=== PATIENT | female | born 1925 | race Caucasian/White ===

== ENCOUNTER 2016-05-24 03:16 | Inpatient (IN) | payer OTHER, BC ==
[~2016-05-24] VITALS: Ht 157.5 cm; Wt 67.9 kg
[~2016-05-24 03:16] MED LIST: ACETAMINOPHEN-1 EAC1 PO; AMITRIPTYLINE H10 MG PO; ASPIRIN EC325 MG PO; ASPIRIN81 M2 PO; BYSTOLIC5 MG PO; CARVEDILOL12.5 MG PO; CARVEDILOL3.125 MG PO; CITALOPRAM HBR10 MG PO; CLOPIDOGREL75 MG PO; CYANOCOBALAM1000 MCG PO; DIABETIC TUSSI118 ML PO; FAMOTIDINE20 MG PO; FERROUS SULFAT325 MG PO; HUMALOG100 UNIT/2 SC; HYDROCHLOROTHIA25 MG PO; IPRATR-ALBUTEROL3 ML IH; LASIX40 MG PO; LISINOPRIL2.5 MG PO; LIVALO2 MG PO; LO-DOSE ASPIRIN81 M1 PO; MUCINEX600 MG PO; NASACORT10.8 ML BOTH NARES; NITROGLYCERIN0.4 MG SL; NOVOLOG PE100 UNITS/ SC; TESSALON PERLE100 MG PO; TRADJENTA5 MG PO; TYLENOL EXTRA500 MG PO; TYLENOL REGULA325 MG PO; VOLTAREN 1% GE100 GM TP; WELCHOL3.75 GM PO; XARELTO15 MG PO; ZETIA10 MG PO
[2016-05-24 04:29] LABS: ADD MIUA? NO; BILIRUBIN NEGATIVE; BLOOD NEGATIVE; COLOR YELLOW ((YELLOW)); GLUCOSE (STRIP) NEGATIVE; KETONES NEGATIVE; LEUKOCYTES NEGATIVE; NITRITE NEGATIVE; PROTEIN (STRIP) NEGATIVE; SPECIFIC GRAVITY 1.011 (1.000-1.030); UCUL ADDED? NO; UROBILINOGEN 0.2 MG/DL (0.2-1.0)
[2016-05-24 04:40] LABS: HEMATOCRIT 32.5 % (36.0-46.0); MCH 30.9 PG (29.0-34.0); MCHC 32.6 G/DL (30.0-36.0); MCV 94.8 FL (83-99); PLATELET COUNT 222 K/uL (156-360); RBC DIS.WIDTH-CV 13.9 % (11.8-14.6); RBC DIS.WIDTH-SD 45.9 % (39-53); WHITE BLOOD COUNT 6.4 K/uL (4.1-10.2)
[2016-05-24 04:43] LABS: MEAN PLAT.VOLUME 9.6 uM^3 (9.5-12.4); RED BLOOD COUNT 3.43 M/uL (3.80-5.20)
[2016-05-24 05:01] LABS: TROP-I INTERPRETATION NEGATIVE; TROPONIN-I < 0.01 ng/mL (0.0-0.30)
[2016-05-24 05:07] LABS: CHLORIDE 115 mEq/L (99-109); POTASSIUM 5.4 mEq/L (3.7-5.4); SODIUM 137 mEq/L (136-147)
[2016-05-24 05:09] LABS: GLUCOSE 113 mg/dL (70-99)
[2016-05-24 05:11] LABS: ANION GAP 9 MEQ/L (2-14); TOTAL BILIRUBIN 0.3 mg/dL (0.0-1.0)
[2016-05-24 05:13] LABS: ALKALINE PHOSPHATASE 133 IU/L (3-129); GFR ESTIMATE (CALCULATED) 30 mL/min/
[2016-05-24 05:14] LABS: UREA NITROGEN (BUN) 41 mg/dL (9-23)
[2016-05-24 05:16] LABS: LIPASE 125 U/L (1.0-51.0)
[2016-05-24 05:17] LABS: CREATINE KINASE 30 IU/L (1-294)
[2016-05-24 07:44] VITALS: BP 178/78
[2016-05-24 15:52] VITALS: BP 169/76
[2016-05-24 21:30] VITALS: BP 156/70
[2016-05-25] VITALS: BP 147/77
[2016-05-25 05:19] VITALS: BP 130/60
[2016-05-25 08:01] LABS: INTERNAL CONTROL VALID? YES
[2016-05-25 08:47] VITALS: BP 184/79
[2016-05-25] MEDS ORDERED: POTASSIUM CHLO20 ME2 PO (09:10)
[2016-05-25] MEDS ORDERED: REMERON15 M2 PO (09:12)
[2016-05-25] MEDS ORDERED: NOVOLOG PE100 UNITS/ SC (09:15)
[2016-05-25] MEDS ORDERED: LASIX20 MG PO (09:17)
[2016-05-25] MEDS ORDERED: TUSSIN100 MG/5 M PO (09:18)
[2016-05-25] MEDS ORDERED: DUONEB 2.5-0.5 M3 ML AEROSOL (09:21)
[2016-05-25] MEDS ORDERED: ROBITUSSIN DM118 ML PO (09:23)
[2016-05-25] MEDS ORDERED: TYLENOL REGULA325 MG PO (09:25)
[2016-05-25] MEDS ORDERED: ZETIA10 MG PO (09:47)
[2016-05-25 11:16] LABS: BASE EXCESS -9.5 mEq/L (-3 to +3); BICARBONATE 15.1 mEq/L (22-26); CARBOXY HGB 1.8 % (0-5); COMMENTS - BLOOD GASES A+C+; DEVICE RA; METHEMOGLOBIN 1.4 % (0-1.5); PCO2 28 mm Hg (35-45); PO2 85 mm Hg (80-100); SITE LR; TOTAL RESP RATE 19 resp/min; pH 7.34 (7.35-7.45)
[2016-05-25 11:48] LABS: HEMATOCRIT 29.7 % (36.0-46.0); MCH 31.2 PG (29.0-34.0); MCHC 33.3 G/DL (30.0-36.0); MCV 93.7 FL (83-99); MEAN PLAT.VOLUME 9.9 uM^3 (9.5-12.4); PLATELET COUNT 224 K/uL (156-360); RBC DIS.WIDTH-CV 13.9 % (11.8-14.6); RED BLOOD COUNT 3.17 M/uL (3.80-5.20); WHITE BLOOD COUNT 6.5 K/uL (4.1-10.2)
[2016-05-25 12:11] LABS: ANION GAP 9 MEQ/L (2-14); CHLORIDE 115 MEQ/L (99-109); GFR ESTIMATE (CALCULATED) 41 mL/min/; GLUCOSE 126 mg/dL (70-99); POTASSIUM 4.6 MEQ/L (3.7-5.4); SAMPLE HEMOLYSIS CHECK 0; SAMPLE ICTERIC CHECK 0; SAMPLE LIPEMIA CHECK 0; SODIUM 139 MEQ/L (136-147); UREA NITROGEN (BUN) 30 mg/dL (9-23)
[2016-05-25 16:25] VITALS: BP 174/76
[2016-05-25 20:00] VITALS: BP 191/82
[2016-05-25 21:08] LABS: POINT-OF-CARE METER ID UU13113831
[2016-05-26 00:06] VITALS: BP 135/89
[2016-05-26 07:12] LABS: HEMATOCRIT 25.2 % (36.0-46.0); MCH 31.7 PG (29.0-34.0); MCHC 34.1 G/DL (30.0-36.0); MEAN PLAT.VOLUME 10.1 uM^3 (9.5-12.4); PLATELET COUNT 214 K/uL (156-360); RBC DIS.WIDTH-CV 14.2 % (11.8-14.6); RBC DIS.WIDTH-SD 48.1 % (39-53); RED BLOOD COUNT 2.71 M/uL (3.80-5.20)
[2016-05-26 07:44] LABS: ANION GAP 5 MEQ/L (2-14); CHLORIDE 112 MEQ/L (99-109); GFR ESTIMATE (CALCULATED) 41 mL/min/; GLUCOSE 103 mg/dL (70-99); POTASSIUM 3.8 MEQ/L (3.7-5.4); SAMPLE HEMOLYSIS CHECK 0; SAMPLE ICTERIC CHECK 0; SAMPLE LIPEMIA CHECK 0; SODIUM 138 MEQ/L (136-147); UREA NITROGEN (BUN) 23 mg/dL (9-23)
[2016-05-26 08:00] VITALS: BP 187/73
[2016-05-26] MEDS ORDERED: AUGMENTIN500 MG PO (10:47)
[2016-05-26 11:17] VITALS: BP 130/62
== END 2016-05-26 13:54 | disposition home or self-care (01) | DRG 194 ==
LOC: EME 03:16 → EDOF 06:10 → 5WEST 07:24
PROVIDERS: Emergency Medicine; Internal Medicine; Physician Assistant
DX: J15.9 Unspecified bacterial pneumonia (principal); E87.2 Acidosis; I13.0 Hypertensive heart and chronic kidney disease with heart failure and stage 1 through stage 4 chronic kidney disease, or unspecified chronic kidney disease; R68.0 Hypothermia, not associated with low environmental temperature; E86.0 Dehydration; J04.0 Acute laryngitis; I25.10 Atherosclerotic heart disease of native coronary artery without angina pectoris; I50.9 Heart failure, unspecified; N18.9 Chronic kidney disease, unspecified; E11.22 Type 2 diabetes mellitus with diabetic chronic kidney disease; E78.5 Hyperlipidemia, unspecified; F41.9 Anxiety disorder, unspecified; G47.00 Insomnia, unspecified; M19.90 Unspecified osteoarthritis, unspecified site; Y95 Nosocomial condition; Z66 Do not resuscitate; Z96.649 Presence of unspecified artificial hip joint; I25.2 Old myocardial infarction; Z79.82 Long term (current) use of aspirin; Z79.01 Long term (current) use of anticoagulants
CPT/HCPCS: 36600; 70450; 71020; 80048; 80048 91; 80053; 81003; 82550; 82803; 82948; 83605; 83690; 83880; 84443; 84484; 85027; 87040; 87070; 87205; 87449; 87651 90; 93005; 99202; 99281; 99285; J1644; J1815; J2543; J7030; J7050; J7120